=== PATIENT | female | born 1955 | race Caucasian/White ===

== ENCOUNTER 2016-11-08 09:59 | Emergency (ER) | payer OTHER ==
[~2016-11-08] VITALS: Wt 79.0 kg
--- NOTE | 2016-11-08 13:25 | ERD ---
ER Documentation Chief Complaint Date/Time DATE: 11/08/16 TIME: 13:23 Chief Complaint HEAD INJURY YESTERDAY, BRUISING ON FOREHEAD, NO KO HPI This is a 61-year-old female that presents to the ER for evaluation after a fall she had at work yesterday. Patient was walking with a rack of clothes when the rack of clothes fell onto a pothole, making patient fall and hit her head on the rocks. Patient states that now she is experiencing a headache and left eye pressure. Patient denies any eyeball pain. She denies any red eye, eye discharge, vision changes or vision loss. She denies seeing any halos or any diplopia. Patient did not lose consciousness she does not have any nausea or vomiting. Patient states that she is worried because she has been dropping more things than usual. She is having some trouble with her balance. Patient denies any fevers or chills.. ROS 12 point review of systems was done, all negative except per HPI. 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 HEENT: Atraumatic. Conjunctivae are pink. Pupils equal, round, and reactive to light. Extraocular muscles are grossly intact.Patient has nonpainful extraocular movements. There is no eye discharge, no hyphemas, hypopyon or exophthalmos. No saab sign no raccoon eyes. There is no CSF fluid from nose or ears. NECK: C-spine is soft and supple. There is no cervical lymphadenopathy. CHEST: Clear to auscultation bilaterally. There are no rales, wheezes or rhonchi. HEART: Regular rate and rhythm. No murmurs, clicks, rubs or gallops. EXTREMITIES: Full range of motion. Grossly neurovascularly intact. NEURO: Alert and oriented. Cranial nerves II through XII are intact. Motor strength in all 4 extremities with 5/5 strength. Sensation grossly intact. Normal speech and gait. Negative Rhomberg. +2 DTRs. SKIN: Patient does have an abrasion over the right side of her forehead. An abrasion to her left distal second digit. Results 24 hrs [place] [address] Radiology Main Line: [phone] DIAGNOSTIC IMAGING REPORT Patient: SUN HICKS : 1955 Age: 61 Sex: F MR #: [id number] DOS: 11/08/16 0000 Ordering MD: EVELYNE STEPHENS PA-C Location: [facility] Room/Bed: PROCEDURE: CT brain without contrast CLINICAL INDICATION: Fall, head pain TECHNIQUE: CT of the brain without contrast performed on a multidetector CT scanner, with multiplanar reformats. One or more of the following dose reduction techniques were used: Automated exposure control, adjustment in mA and / or kV according to patient size, use of iterative reconstructive technique. CTDIvol = 44 mGy; DLP = 630 mGy-cm. COMPARISON: None available FINDINGS: No acute intracranial hemorrhage is identified. No extra-axial fluid collection is seen. There is no mass effect. No midline shift is identified. The ventricles and sulci are mildly enlarged compatible with volume loss. The density of the brain is unremarkable. Rosales-white differentiation is preserved. Small right frontal scalp swelling without underlying fracture. Calvarium and skull base appear intact. Mastoid air cells and imaged paranasal sinuses grossly clear. IMPRESSION: 1. Mild right frontal scalp swelling, without underlying fracture or evidence of acute intracranial pathology. 2. Mild volume loss. RPTAT: VV .Vivek Forrest MD, MD Date Time Electronically viewed and signed by .Vivek Forrest MD, MD on 11/08/2016 15:01 .O/ CC: EVELYNE STEPHENS [place] [address] Radiology Main Line: [phone] DIAGNOSTIC IMAGING REPORT Patient: SUN HICKS : 1955 Age: 61 Sex: F MR #: [id number] DOS: 11/08/16 0000 Ordering MD: EVELYNE STEPHENS P[place]ina Location: [facility] Room/Bed: PROCEDURE: CT orbits without contrast CLINICAL INDICATION: Fall, abrasion right superior orbit TECHNIQUE: A CT of the orbits without contrast was performed on a multidetector CT scanner, with multiplanar reformats. One or more of the following dose reduction techniques were used: Automated exposure control, adjustment in mA and / or kV according to patient size, use of iterative reconstructive technique. The exam CTDIvol = 29 mGy and DLP = 360 mGy-cm. COMPARISON: None available. FINDINGS: No orbital fracture or injury of the orbital structures is identified. Noted are bilateral intraocular artificial lenses. Bilateral globes are intact. Bilateral optic nerve sheath complexes, extraocular muscles and lacrimal glands are unremarkable. The bony orbits appear intact. No significant periorbital soft tissue swelling, gas or radiopaque foreign body is seen. Again noted is mild right frontal scalp swelling. Minimal scattered mucosal thickening is seen in the bilateral frontal, ethmoid and right maxillary sinuses without fluid levels. IMPRESSION: No orbital fracture/injury identified. RPTAT: VV .Vivek Forrest MD, MD Date Time Electronically viewed and signed by .Vivek Forrest MD, MD on 11/08/2016 15:05 .O/ CC: EVELYNE STEPHENS Procedures/MDM This is a 61-year-old female presents to the ER after injuring her head at work. Patient did complain of a headache, and stated that she was dropping more things than usual. Because of this CT imaging was ordered, however there was no evidence of intracranial abnormality. Patient's neurological examination is completely benign with no focal neurological deficits. Patient' s headache related to 1 of her eyes, CT orbits was done, suspicion for entrapment or retinal detachment is low. Patient denied any vision changes or vision loss. Suspicion for acute angle-closure glaucoma is low, as patient's pain is related to headache which occurred after trauma. Patient will be sent home with ibuprofen. I shared my medical decision making with the patient,she understands and agrees with plan. Departure Diagnosis: Primary Impression: Acute head injury without loss of consciousness Condition: Stable EVELYNE STEPHENS Nov 08, 2016 13:25
--- NOTE | 2016-11-08 15:02 | RADRPT ---
PROCEDURE: CT brain without contrast CLINICAL INDICATION: Fall, head pain TECHNIQUE: CT of the brain without contrast performed on a multidetector CT scanner, with multiplan ar reformats. One or more of the following dose reduction techniques were used: Automated exposure control, adjustment in mA and / or kV according to patient size, use of iterative reconstructive lance hnique. CTDIvol = 44 mGy; DLP = 630 mGy-cm. COMPARISON: None available FINDINGS: No acute intracranial hemorrhage is identified. No extra-axial fluid collection is seen. There is no mass effect. No midline shift is identified. The ventricles and sulci are mildly enlarged compatible with volume loss. The density of the brain is unremarkable. Rosales-white differentiation is preserved. Small right frontal scalp swelling without underlying fracture. Calvarium and skull base appear inta ct. Mastoid air cells and imaged paranasal sinuses grossly clear. IMPRESSION: 1. Mild right frontal scalp swelling, without underlying fracture or evidence of acute intracranial pathology. 2. Mild volume loss. RPTAT: VV .Vivek Forrest MD, MD Date Time Electronically viewed and signed by .Vivek Forrest MD, on 11/08/2016 15:01 .O/
--- NOTE | 2016-11-08 15:05 | RADRPT ---
PROCEDURE: CT orbits without contrast CLINICAL INDICATION: Fall, abrasion right superior orbit TECHNIQUE: A CT of the orbits without contrast was performed on a multidetector CT scanner, with m ultiplanar reformats. One or more of the following dose reduction techniques were used: Automated e xposure control, adjustment in mA and / or kV according to patient size, use of iterative reconstruc tive technique. The exam CTDIvol = 29 mGy and DLP = 360 mGy-cm. COMPARISON: None available. FINDINGS: No orbital fracture or injury of the orbital structures is identified. Noted are bilateral intraocul ar artificial lenses. Bilateral globes are intact. Bilateral optic nerve sheath complexes, extraocul ar muscles and lacrimal glands are unremarkable. The bony orbits appear intact. No significant perio rbital soft tissue swelling, gas or radiopaque foreign body is seen. Again noted is mild right front al scalp swelling. Minimal scattered mucosal thickening is seen in the bilateral frontal, ethmoid an d right maxillary sinuses without fluid levels. IMPRESSION: No orbital fracture/injury identified. RPTAT: VV .Vivek Forrest MD, MD Date Time Electronically viewed and signed by .Vivek Forrest MD, MD on 11/08/2016 15:05 .O/
[2016-11-08] MEDS ORDERED: IBUP-1542 PO (15:12)
[2016-11-08] MEDS ORDERED: HYDR-906 PO (15:12)
[2016-11-08 15:19] VITALS: BP 154/78; PULSE 76; RESP 18; TEMP 98.7
== END 2016-11-08 15:20 | disposition home or self-care (01) ==
LOC: FTE 09:59
DX: S00.83XA Contusion of other part of head, initial encounter (principal); S60.411A Abrasion of left index finger, initial encounter; S00.81XA Abrasion of other part of head, initial encounter; S09.90XA Unspecified injury of head, initial encounter; W01.198A Fall on same level from slipping, tripping and stumbling with subsequent striking against other object, initial encounter; Y92.9 Unspecified place or not applicable
CPT/HCPCS: 70450; 70480